=== PATIENT | female | born 1965 | race African-American/Black ===

== ENCOUNTER 2017-10-15 15:57 | Emergency (ER) | payer MEDICARE, BC ==
[~2017-10-15] VITALS: Ht 170.2 cm; Wt 104.8 kg
[~2017-10-15 15:57] MED LIST: DEMADEX20 MG PO; DIGOXIN250 MCG PO; ENTRESTO 24 MG1 EACH PO; FLEXERIL PO; GLUCOPHAGE1000 MG PO; HUMULIN N100 UNIT/1 SQ; LEVOTHYROXIN0.075 MG PO; MIRTAZAPINE15 M2 PO; PHENERGAN 25 MG25 MG PO; PRAVACHOL40 MG PO; WELLBUTRIN XL150 MG PO
[2017-10-15] MEDS ORDERED: DIOVAN 80 MG TA80 M1 PO (16:10)
[2017-10-15] MEDS ORDERED: ASPIR 8181 M1 PO (16:11)
[2017-10-15] MEDS ORDERED: ACETAMINOPHEN-1 EAC1 PO (16:13)
[2017-10-15] MEDS ORDERED: VALIUM5 MG PO (16:13)
[2017-10-15 17:03] LABS: ABSOLUTE EOSINOPHILS 0.1 thou/uL (0.0-0.7); ABSOLUTE LYMPHOCYTES 3.3 thou/uL (0.8-5.3); ABSOLUTE MONOCYTES 0.5 thou/uL (0.0-1.2); ABSOLUTE NEUTROPHILS 4.2 thou/uL (1.6-8.1); BASOPHILS 0.2 %; EOSINOPHILS 1.6 %; HEMOGLOBIN 12.1 gm/dL (12.0-15.0); LYMPHOCYTES 40.4 %; MCH 26.2 pg (26.0-34.0); MCHC 32.7 g/dL (28.0-37.0); MCV 80.1 fL (80.0-100.0); MONOCYTES 6.4 %; MPV 9.2 fl. (7.2-11.1); NUCLEATED RBCS 0 /100WBC; PLATELET COUNT* 200 thou/uL (150-400); POLYS 51.4 %; RBC 4.62 mil/uL (4.20-5.00); RDW-CV 13.8 % (10.5-14.5); WBC 8.2 thou/uL (4.0-11.0)
[2017-10-15 17:07] LABS: ANION GAP 8 mmol/L (7-16); BUN 16 mg/dL (7-18); CALCIUM 8.9 mg/dL (8.5-10.1); CHLORIDE 101 mmol/L (98-107); CO2 31 mmol/L (21-32); GLUCOSE 108 mg/dL (70-99); POTASSIUM 3.6 mmol/L (3.5-5.1); SODIUM 140 mmol/L (136-145)
[2017-10-15 17:17] LABS: ALBUMIN 3.7 g/dL (3.4-5.0); ALKALINE PHOSPHATASE 86 U/L (46-116); NT-PRO BRAIN NAT PEPTIDE 283 pg/mL (<300); SGOT 19 U/L (15-37); SGPT 28 U/L (30-65); TOTAL BILIRUBIN 0.3 mg/dL (<0.1-1.0); TOTAL PROTEIN 7.1 g/dL (6.4-8.2); TROPONIN-I LEVEL <0.06 ng/mL (<0.06)
[2017-10-15 17:19] LABS: INFLUENZA A ANTIGEN None Detected (None Detect); INFLUENZA B ANTIGEN None Detected (None Detect)
[2017-10-15 18:00] LABS: URINE BILIRUBIN NEGATIVE (Negative); URINE BLOOD NEGATIVE (Negative); URINE CLARITY CLEAR; URINE COLOR YELLOW; URINE GLUCOSE-RANDOM NEGATIVE (Negative); URINE KETONES NEGATIVE (Negative); URINE LEUKOCYTES-REFLEX NEGATIVE (Negative); URINE NITRITE-REFLEX NEGATIVE (Negative); URINE PROTEIN NEGATIVE (Negative); URINE SPECIFIC GRAVITY 1.015 (1.005-1.030); URINE UROBILINOGEN 0.2 E.U./dl (0.2-1.0)
[2017-10-15 18:13] VITALS: BP 125/83
--- NOTE | 2017-10-16 11:10 | EKG ---
[place] [address] ELECTROCARDIOGRAM REPORT Name: BRONSONYOKASTA R Room: [facility]#: [id number] Admission: 10/15/17 Attend Phys: Discharge: 10/15/17 Date of : 67 Report #: [id number] THIS REPORT FOR: //name// [facility] ED Test Date: 2017-10-15 Test Time: 16:42:07 Pat Name: YOKASTA DOBSON Department: Room: Gender: F Director Speech: KIRSTEN : 1965 Requested By: Grant Che Order Number: [id number] MD: Azael Leach Measurements Intervals [place] Rate: 79 P: 47 NH: 200 QRS: -31 QRSD: 107 T: 138 QT: 371 QTc: 426 Interpretive Statements Sinus rhythm Ventricular bigeminy LVH with secondary repolarization abnormality Anterior infarct, old Compared to ECG 03/13/2017 17:43:17 Ventricular premature complex(es) now present Electronically Signed On 10-16-2017 11:10:35 HEAD TELLER by Azael Leach [email or web address] <ELECTRONICALLY SIGNED> By: Azael Leach MD, [facility] 10/16/17 1110 164 164 Azael Leach MD, [facility] /EPI
== END 2017-10-15 18:13 | disposition home or self-care (01) ==
LOC: M.ERS 15:57
PROVIDERS: Physician Assistant
DX: B34.9 Viral infection, unspecified (principal); R42 Dizziness and giddiness; I11.9 Hypertensive heart disease without heart failure; E78.00 Pure hypercholesterolemia, unspecified; E11.9 Type 2 diabetes mellitus without complications; Z95.0 Presence of cardiac pacemaker; Z88.5 Allergy status to narcotic agent; Z88.8 Allergy status to other drugs, medicaments and biological substances

== ENCOUNTER 2017-12-11 09:42 | Emergency (ER) | payer MEDICARE, BC ==
[~2017-12-11] VITALS: Ht 170.2 cm; Wt 105.2 kg
[~2017-12-11 09:42] MED LIST changes: +ACETAMINOPHEN-1 EAC1 PO; +ASPIR 8181 M1 PO; +DIOVAN 80 MG TA80 M1 PO; +VALIUM5 MG PO
[2017-12-11 09:45] VITALS: BP 116/70
[2017-12-11 10:11] LABS: ABSOLUTE BASOPHILS 0.1 thou/uL (0.0-0.2); ABSOLUTE EOSINOPHILS 0.1 thou/uL (0.0-0.7); ABSOLUTE LYMPHOCYTES 1.5 thou/uL (0.8-5.3); ABSOLUTE NEUTROPHILS 9.2 thou/uL (1.6-8.1); BASOPHILS 0.5 %; EOSINOPHILS 0.6 %; HEMATOCRIT 33.3 % (37.0-47.0); HEMOGLOBIN 10.7 gm/dL (12.0-15.0); LYMPHOCYTES 12.3 %; MCH 25.5 pg (26.0-34.0); MCHC 32.2 g/dL (28.0-37.0); MONOCYTES 8.9 %; MPV 9.3 fl. (7.2-11.1); NUCLEATED RBCS 0 /100WBC; PLATELET COUNT* 176 thou/uL (150-400); POLYS 77.7 %; RBC 4.22 mil/uL (4.20-5.00); RDW-CV 14.2 % (10.5-14.5); WBC 11.8 thou/uL (4.0-11.0)
[2017-12-11 10:21] LABS: APTT 25.4 Seconds (25.0-31.3); INR 1.1; PROTIME 10.6 Seconds (9.20-11.50)
[2017-12-11 10:25] LABS: ANION GAP 8 mmol/L (7-16); BUN 10 mg/dL (7-18); CALCIUM 8.6 mg/dL (8.5-10.1); CHLORIDE 99 mmol/L (98-107); CO2 27 mmol/L (21-32); CREATININE 0.8 mg/dL (0.6-1.3); GLUCOSE 201 mg/dL (70-99); POTASSIUM 3.9 mmol/L (3.5-5.1); SODIUM 134 mmol/L (136-145)
[2017-12-11 10:39] LABS: ALBUMIN 3.1 g/dL (3.4-5.0); ALKALINE PHOSPHATASE 77 U/L (46-116); NT-PRO BRAIN NAT PEPTIDE 2575 pg/mL (<300); SGOT 17 U/L (15-37); SGPT 22 U/L (30-65); TOTAL BILIRUBIN 0.9 mg/dL (<0.1-1.0); TOTAL PROTEIN 7.1 g/dL (6.4-8.2); TROPONIN-I LEVEL <0.06 ng/mL (<0.06)
[2017-12-11 12:27] LABS: INFLUENZA A ANTIGEN None Detected (None Detect); INFLUENZA B ANTIGEN None Detected (None Detect)
--- NOTE | 2017-12-11 14:18 | NUR ---
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 NOTIFIED.
[2017-12-11 15:25] VITALS: BP 110/64
--- NOTE | 2017-12-11 15:36 | EKG ---
[place] [address] ELECTROCARDIOGRAM REPORT Name: BRONSONYOKASTA R Room: [facility]#: [id number] Admission: 12/11/17 Attend Phys: Discharge: 12/11/17 Date of : 67 Report #: [id number] THIS REPORT FOR: //name// [facility] ED Test Date: 2017-12-11 Test Time: 09:49:36 Pat Name: YOKASTA DOBSON Department: Room: [facility] Gender: F Blind Lacer: [employer]EN : 1965 Requested By: Richard Ha Order Number: [id number] MD: Azael Leach Measurements Intervals [address] Rate: 92 P: 55 NV: 182 QRS: -20 QRSD: 107 T: 148 QT: 338 QTc: 419 Interpretive Statements Sinus rhythm poor r wave progression Borderline left axis deviation Repolarization abnormality, prob rate related Compared to ECG 10/15/2017 16:42:07 Ventricular premature complex(es) no longer present Left ventricular hypertrophy no longer present Electronically Signed On 12-11-2017 15:35:48 [employer] by Azael Leach [email or web address] <ELECTRONICALLY SIGNED> By: Azael Leach MD, [facility] 12/11/17 1535 0949 0949 Azael Leach MD, [facility] /EPI
== END 2017-12-11 15:11 | disposition short-term general hospital (02) ==
LOC: M.ERS 09:42 → M.TBA-ER 12:14 → M.ERS 12:14
PROVIDERS: Family Medicine
DX: I11.0 Hypertensive heart disease with heart failure (principal); I50.9 Heart failure, unspecified; J18.9 Pneumonia, unspecified organism; E11.9 Type 2 diabetes mellitus without complications; R06.00 Dyspnea, unspecified; E78.00 Pure hypercholesterolemia, unspecified; Z88.8 Allergy status to other drugs, medicaments and biological substances; Z88.5 Allergy status to narcotic agent